=== PATIENT | female | born 1945 | race Two or more races ===

== ENCOUNTER 2024-03-06 12:00 | Inpatient (IN) | payer OTHER ==
[~2024-03-06] VITALS: Ht 149.9 cm; Wt 129.7 kg
[2024-03-06] MEDS ORDERED: LOSARTAN POTASS50 MG (12:41)
[2024-03-06] MEDS ORDERED: ADULT LOW DOSE81 M1 (12:41)
[2024-03-06] MEDS ORDERED: NEURONTIN300 MG (12:41)
[2024-03-06] MEDS ORDERED: CRESTOR40 MG (12:42)
--- NOTE | 2024-03-06 12:44 | NUR ---
SE RECIBE PTE ALERTA Y ORIENTADA X3 LA MISMA REFIERE DOLOR ABDOMINAL VOMITO X1 COLOR DON Y DIARREAS X3. PTE DEL DR.BAEZ MARQUEZ. SE MIDEN S/V Y SE UBICA
[2024-03-06] MEDS ORDERED: 0.9 % SODIUM CHLORIDE 1,000 ML IV SCH ×2 (13:00→17:15)
--- NOTE | 2024-03-06 13:28 | NUR ---
SE ORIENTA A PTE SOBRE TX MEDICO Y LA MISMA REFIERE ENTENDER. SE CANALIZA PTE CON ANGIO #20 EN ROSIOO MARGOT, SE RECOLECTAN MUESTRAS DE LAB Y SE ADMINISTRAN MEDICAMENTOS DEENA ORDEN MEDICA BAJO MEDIDAS ASEPTICAS.
[2024-03-06 13:43] LABS: HEMATOCRIT 23.7 % (36.0-45.00); MEAN CELL VOLUME 76.7 fL (80.00-100.00); MEAN CORPUSCULAR HGB CONC 31.8 g/dl (32.0-36.0); PLATELET COUNT 523 K/uL (150-450); RED BLOOD COUNT 3.09 M/uL (4.00-6.00); RED CELL DISTRIBUTION WIDTH 20.5 % (11.5-14.5)
[2024-03-06 13:46] LABS: HEMOGLOBIN 7.5 g/dL (12.0-15.00); MEAN CORPUSCULAR HEMOGLOBIN 24.2 pg (27.00-32.0)
[2024-03-06 13:56] LABS: INR 1.01; PARTIAL THROMBOPLASTIN TIME 23.4 SECONDS (22.0-34.0); PROTHROMBIN TIME 10.5 SECONDS (9.0-11.5)
[2024-03-06 14:12] LABS: CALCIUM 9.4 mg/dL (8.5-10.1); CREATININE SERUM 0.57 mg/dL (0.55-1.02); GFR 102.85; POTASSIUM 4.14 mEq/L (3.5-5.1)
[2024-03-06 14:41] LABS: PH,URINE 5.5 (5.0-8.0); URINE APPEARANCE Cloudy; URINE BILIRRUBIN Negative (NEGATIVE); URINE BLOOD Negative; URINE COLOR Dark Yellow; URINE GLUCOSE Negative (NEGATIVE); URINE LEUKOCYTE Negative; URINE NITRATE Negative; URINE PROTEIN 30 (NEGATIVE)
[2024-03-06 14:46] LABS: URINE BACTERIA 5986.2 uL (0.0-1933); URINE EPITHELIAL CELLS 119.9 uL (0.0-38.8); URINE RBC 18.3 uL (0.0-20.8); URINE WBC 46.9 uL (0.0-23.2)
[2024-03-06 15:50] LABS: URINE CAST 0.76 uL (0.0-1.40); URINE CRYSTALS MODERATE /HPF; URINE KETONE 80 (NEGATIVE)
--- NOTE | 2024-03-06 16:22 | NUR ---
SE RECIBE PACIENTE ALERTA Y ORIENTADA X3 EN COMPANIA DE FAMILIAR LA CUAL AL MOMENTO SE ENCUENTRA EN MARIE CON BARANDAS ELEVADAS. SE MANTIENE BAJO OBSERVACION PARA CONTINUACION DE TRATAMIENTO.
[2024-03-06] MEDS ORDERED: CEFTRIAXONE SODIUM 2,000 MG in 0.9 % SODIUM CHLORIDE 100 ML IV SCH (17:02)
[2024-03-06] MEDS ORDERED: FUROsemide 20 MG/2 ML VIAL IV SCH (17:15)
[2024-03-06] MEDS ORDERED: PANTOPRAZOLE SODIUM 40 MG/VIAL VIAL IV ONE (17:15)
[2024-03-06] MEDS ORDERED: ACETAMINOPHEN 500 MG GEL..CAP PO PRN (17:30)
[2024-03-06] MEDS ORDERED: ONDANSETRON HCL 4 MG in 0.9 % SODIUM CHLORIDE 50 ML IV PRN (17:30)
[2024-03-06] MEDS ORDERED: PANTOPRAZOLE SODIUM 80 MG in 0.9 % SODIUM CHLORIDE 100 ML IV SCH (17:30)
[2024-03-06] MEDS ORDERED: ENALAPRILAT DIHYDRATE 1.25 MG/ML VIAL IV SCH (18:00)
[2024-03-06 18:44] VITALS: BP 119/79
[2024-03-06 22:18] VITALS: BP 114/65; O2SAT 98
[2024-03-07 01:28] VITALS: BP 103/62; O2SAT 98
[2024-03-07 06:26] LABS: MEAN CELL VOLUME 77.8 fL (80.00-100.00); MEAN CORPUSCULAR HGB CONC 32.1 g/dl (32.0-36.0); PLATELET COUNT 459 K/uL (150-450); RED BLOOD COUNT 2.55 M/uL (4.00-6.00); RED CELL DISTRIBUTION WIDTH 20.5 % (11.5-14.5)
[2024-03-07 06:51] LABS: HEMATOCRIT 19.9 % (36.0-45.00); HEMOGLOBIN 6.4 g/dL (12.0-15.00)
[2024-03-07 08:49] VITALS: BP 130/76
[2024-03-07 15:05] VITALS: BP 115/67; O2SAT 99
[2024-03-07 16:47] LABS: PH,URINE 5.5 (5.0-8.0); URINE APPEARANCE Clear; URINE BILIRRUBIN Negative (NEGATIVE); URINE BLOOD Negative; URINE COLOR Yellow; URINE GLUCOSE Negative (NEGATIVE); URINE LEUKOCYTE Negative; URINE NITRATE Negative; URINE PROTEIN Trace (NEGATIVE); URINE UROBILINOGEN 0.2 E.U./dl
[2024-03-07 16:51] LABS: URINE BACTERIA 583.2 uL (0.0-1933); URINE EPITHELIAL CELLS 28.2 uL (0.0-38.8); URINE RBC 5.1 uL (0.0-20.8); URINE WBC 8.8 uL (0.0-23.2)
[2024-03-07 16:57] LABS: URINE CAST 0.76 uL (0.0-1.40); URINE KETONE 80 (NEGATIVE)
[2024-03-07] MEDS ORDERED: GABAPENTIN 300 MG CAPSULE PO SCH (17:00)
[2024-03-08] VITALS: BP 111/74; O2SAT 98
[2024-03-08 08:46] VITALS: BP 144/88
[2024-03-08 16:49] VITALS: BP 130/80; O2SAT 96
[2024-03-09 02:39] VITALS: BP 113/74; O2SAT 99
[2024-03-09 08:50] VITALS: BP 145/64
[2024-03-09] MEDS ORDERED: LOSARTAN POTASSIUM 50 MG TABLET PO NR (12:00)
[2024-03-09] MEDS ORDERED: SOD FERRIC GLUC COMPLX/SUCROSE 62.5 MG/5 ML AMPUL IV NR (12:00)
[2024-03-09] MEDS ORDERED: PANTOPRAZOLE SODIUM 40 MG/VIAL VIAL IV NR (12:00)
[2024-03-09 14:59] LABS: HEMATOCRIT 39.3 % (36.0-45.00); HEMOGLOBIN 13.1 g/dL (12.0-15.00); MEAN CELL VOLUME 79.8 fL (80.00-100.00); MEAN CORPUSCULAR HEMOGLOBIN 26.5 pg (27.00-32.0); MEAN CORPUSCULAR HGB CONC 33.3 g/dl (32.0-36.0); PLATELET COUNT 439 K/uL (150-450); RED BLOOD COUNT 4.92 M/uL (4.00-6.00); RED CELL DISTRIBUTION WIDTH 18.4 % (11.5-14.5)
[2024-03-09 15:40] LABS: ALBUMIN 3.5 gm/dL (3.4-5.0); BILIRUBIN TOTAL 1.14 mg/dL (0.3-1.2); CREATININE SERUM 0.56 mg/dL (0.55-1.02); FERRITIN 18.4 NG/ML (8-252); GFR 104.97; GLOBULINA 4.1 G/DL (2.4-3.5); MAGNESIUM 1.6 mg/dL (1.8-2.4); PHOSPHOROUS 3.7 mg/dL (2.5-4.9); POTASSIUM 3.95 mEq/L (3.5-5.1); TOTAL PROTEIN 7.6 gm/dL (6.4-8.2)
[2024-03-09 15:42] LABS: C-REACTIVE PROTEIN 1.4 MG/DL (0.00-0.29)
[2024-03-09 17:40] VITALS: BP 146/75; O2SAT 97
[2024-03-09] MEDS ORDERED: PANTOPRAZOLE SODIUM 40 MG/VIAL VIAL IV PUSH SCH (21:00)
[2024-03-09] MEDS ORDERED: GABAPENTIN 300 MG CAPSULE PO SCH (21:00)
[2024-03-10 01:24] VITALS: BP 99/65; O2SAT 98
[2024-03-10] MEDS ORDERED: LOSARTAN POTASSIUM 50 MG TABLET PO SCH (09:00)
[2024-03-10] MEDS ORDERED: FOLIC ACID 1 MG TABLET PO SCH (09:00)
[2024-03-10] MEDS ORDERED: SOD FERRIC GLUC COMPLX/SUCROSE 125 MG in 0.9 % SODIUM CHLORIDE 100 ML IV SCH (09:00)
[2024-03-10 09:20] VITALS: BP 115/66; O2SAT 100
[2024-03-10] MEDS ORDERED: MAGNESIUM SULFATE IN WATER 50 ML IV NR (14:15)
[2024-03-10 18:20] VITALS: BP 136/72
[2024-03-11 02:33] VITALS: BP 128/79; O2SAT 100
[2024-03-11 09:19] VITALS: BP 108/61; O2SAT 99
[2024-03-11 16:53] VITALS: BP 113/70
[2024-03-12 02:30] VITALS: BP 104/56; O2SAT 100
[2024-03-12 09:03] VITALS: BP 95/75; O2SAT 95
[2024-03-12 16:00] VITALS: BP 98/63; O2SAT 94
[2024-03-12 16:48] VITALS: BP 94/57
[2024-03-12 20:00] VITALS: BP 120/81
[2024-03-13 09:41] VITALS: BP 121/69; O2SAT 98
[2024-03-13 16:00] VITALS: BP 122/72; O2SAT 97
[2024-03-14 00:29] VITALS: BP 115/67; O2SAT 97
[2024-03-14 05:45] LABS: ALBUMIN 2.1 gm/dL (3.4-5.0); BILIRUBIN TOTAL 0.48 mg/dL (0.3-1.2); CALCIUM 8.3 mg/dL (8.5-10.1); CREATININE SERUM 0.35 mg/dL (0.55-1.02); GFR 180.56; GLOBULINA 3.4 G/DL (2.4-3.5); PHOSPHOROUS 2.1 mg/dL (2.5-4.9); POTASSIUM 3.1 mEq/L (3.5-5.1); TOTAL PROTEIN 5.5 gm/dL (6.4-8.2)
[2024-03-14 05:51] LABS: HEMATOCRIT 31.9 % (36.0-45.00); HEMOGLOBIN 10.6 g/dL (12.0-15.00); MAGNESIUM 1.4 mg/dL (1.8-2.4); MEAN CELL VOLUME 81.2 fL (80.00-100.00); MEAN CORPUSCULAR HGB CONC 33.2 g/dl (32.0-36.0); PLATELET COUNT 248 K/uL (150-450); RED BLOOD COUNT 3.93 M/uL (4.00-6.00); RED CELL DISTRIBUTION WIDTH 19.4 % (11.5-14.5)
[2024-03-14 08:53] VITALS: BP 115/68; O2SAT 96
[2024-03-14 16:27] VITALS: BP 149/63; O2SAT 100
[2024-03-14] MEDS ORDERED: MAGNESIUM SULFATE 2,000 MG in 0.9 % SODIUM CHLORIDE 100 ML IV NR (16:30)
[2024-03-14] MEDS ORDERED: POTASSIUM PHOS,M-BASIC-D-BASIC 18 MM in 0.9 % SODIUM CHLORIDE 500 ML IV NR (16:30)
[2024-03-14] MEDS ORDERED: METHYLPREDNISOLONE SOD SUCC 40 MG VIAL IV ONE (18:15)
[2024-03-14] MEDS ORDERED: VANCOMYCIN HCL 1,000 MG VIAL IV ONE (18:15)
[2024-03-15 04:00] VITALS: BP 111/69; O2SAT 95
[2024-03-15 04:52] LABS: HEMATOCRIT 31.9 % (36.0-45.00); MEAN CELL VOLUME 80.3 fL (80.00-100.00); MEAN CORPUSCULAR HGB CONC 32.9 g/dl (32.0-36.0); PLATELET COUNT 242 K/uL (150-450); RED BLOOD COUNT 3.98 M/uL (4.00-6.00); RED CELL DISTRIBUTION WIDTH 20.2 % (11.5-14.5)
[2024-03-15 05:09] LABS: HEMOGLOBIN 10.5 g/dL (12.0-15.00); INR 1.05; MEAN CORPUSCULAR HEMOGLOBIN 26.3 pg (27.00-32.0); PARTIAL THROMBOPLASTIN TIME 31.2 SECONDS (22.0-34.0); PROTHROMBIN TIME 11.4 SECONDS (9.0-11.5)
[2024-03-15 05:14] LABS: ALBUMIN 2.4 gm/dL (3.4-5.0); BILIRUBIN TOTAL 0.65 mg/dL (0.3-1.2); CALCIUM 8.7 mg/dL (8.5-10.1); GFR 233.59; MAGNESIUM 1.9 mg/dL (1.8-2.4); PHOSPHOROUS 2.7 mg/dL (2.5-4.9); POTASSIUM 3.58 mEq/L (3.5-5.1); TOTAL PROTEIN 5.4 gm/dL (6.4-8.2)
[2024-03-15 05:15] LABS: CREATININE SERUM 0.28 mg/dL (0.55-1.02)
[2024-03-15 08:54] VITALS: BP 113/66; O2SAT 96
[2024-03-15] MEDS ORDERED: ENOXAPARIN SODIUM 30 MG/0.3 ML SYRINGE SUBCUTANEO NR (16:20)
[2024-03-15] MEDS ORDERED: MORPHINE SULFATE 4 MG/ML CARTRIDGE IV SCH (17:00)
[2024-03-15] MEDS ORDERED: CEFAZOLIN SODIUM 1,000 MG VIAL IV SCH (18:00)
[2024-03-15 18:08] VITALS: BP 133/80; O2SAT 98
[2024-03-15] MEDS ORDERED: FAMOTIDINE/PF 20 MG/2 ML VIAL IV SCH (21:00)
[2024-03-16 01:23] VITALS: BP 78/48; O2SAT 96
[2024-03-16 05:27] VITALS: BP 103/64; O2SAT 93
[2024-03-16] MEDS ORDERED: ENOXAPARIN SODIUM 30 MG/0.3 ML SYRINGE SUBCUTANEO SCH (09:00)
[2024-03-16 09:17] VITALS: BP 96/56; O2SAT 97
[2024-03-16 10:08] VITALS: BP 105/60
[2024-03-16 17:48] VITALS: BP 110/69; O2SAT 99
[2024-03-17 01:30] VITALS: BP 96/61; O2SAT 91
[2024-03-17 06:51] LABS: HEMATOCRIT 29.9 % (36.0-45.00); HEMOGLOBIN 9.8 g/dL (12.0-15.00); MEAN CELL VOLUME 82.4 fL (80.00-100.00); MEAN CORPUSCULAR HEMOGLOBIN 27.1 pg (27.00-32.0); MEAN CORPUSCULAR HGB CONC 32.9 g/dl (32.0-36.0); PLATELET COUNT 206 K/uL (150-450); RED BLOOD COUNT 3.63 M/uL (4.00-6.00); RED CELL DISTRIBUTION WIDTH 21.6 % (11.5-14.5)
[2024-03-17 07:12] LABS: ALBUMIN 1.9 gm/dL (3.4-5.0); BILIRUBIN TOTAL 0.55 mg/dL (0.3-1.2); CALCIUM 8.2 mg/dL (8.5-10.1); CREATININE SERUM 0.36 mg/dL (0.55-1.02); GFR 174.78; POTASSIUM 3.68 mEq/L (3.5-5.1); TOTAL PROTEIN 4.9 gm/dL (6.4-8.2)
[2024-03-17 08:34] LABS: MAGNESIUM 1.4 mg/dL (1.8-2.4)
[2024-03-17 08:35] LABS: PHOSPHOROUS 1.9 mg/dL (2.5-4.9)
[2024-03-17] MEDS ORDERED: KETOROLAC TROMETHAMINE 30 MG VIAL IV SCH (09:00)
[2024-03-17 09:40] VITALS: BP 124/69; O2SAT 99
[2024-03-17] MEDS ORDERED: POTASSIUM PHOS,M-BASIC-D-BASIC 18 MM in 0.9 % SODIUM CHLORIDE 250 ML IV NR (13:45)
[2024-03-17] MEDS ORDERED: MAGNESIUM SULFATE IN WATER 50 ML IV NR (13:45)
[2024-03-17 18:29] VITALS: BP 110/61; O2SAT 95
[2024-03-18 05:26] VITALS: BP 112/63; O2SAT 96
[2024-03-18 08:36] VITALS: BP 134/82; O2SAT 99
[2024-03-18 16:32] VITALS: BP 135/83
[2024-03-19 02:31] VITALS: BP 94/55; O2SAT 99
[2024-03-19 08:08] VITALS: BP 110/68; O2SAT 96
[2024-03-19 08:47] LABS: ALBUMIN 1.8 gm/dL (3.4-5.0); ALKALINE PHOSPHATASE 46 U/L (50-136); ANION GAP 9 (10.0-20.0); AST/SGOT 16 U/L (15-37); BILIRUBIN TOTAL 0.43 mg/dL (0.3-1.2); BLOOD UREA NITROGEN 10 mg/dL (7-18); BUN CREA RATIO 31 (7.0-25.0); CALCIUM 8.5 mg/dL (8.5-10.1); CARBON DIOXIDE 28 mEq/L (21-32); CHLORIDE 113 mmol/L (98-107); CREATININE SERUM 0.32 mg/dL (0.55-1.02); GFR 200.23; GLOBULINA 2.8 G/DL (2.4-3.5); GLUCOSE FASTING 71 mg/dL (65-100); OSMOLALITY SERUM 290 MOSM/KG (275-295); PHOSPHOROUS 2.2 mg/dL (2.5-4.9); POTASSIUM 3.26 mEq/L (3.5-5.1); SODIUM 147 mmol/L (136-145); TOTAL PROTEIN 4.6 gm/dL (6.4-8.2)
[2024-03-19 08:57] LABS: ALT/SGPT < 6 U/L (12-78)
[2024-03-19] MEDS ORDERED: POTASSIUM PHOS,M-BASIC-D-BASIC 18 MM in 0.9 % SODIUM CHLORIDE 250 ML IV ONE (12:45)
[2024-03-19] MEDS ORDERED: DEXTROSE 5 % IN WATER 1,000 ML IV SCH (12:45)
[2024-03-19 17:14] VITALS: BP 116/72
[2024-03-20] VITALS: BP 104/68; O2SAT 94
[2024-03-20 10:10] VITALS: BP 106/64; O2SAT 98
[2024-03-20] MEDS ORDERED: ADULT LOW DOSE81 M1 BUCAL (14:23)
[2024-03-20] MEDS ORDERED: NEURONTIN300 MG BUCAL (14:23)
[2024-03-20] MEDS ORDERED: COZAAR50 MG PO (14:23)
[2024-03-20] MEDS ORDERED: CRESTOR40 MG BUCAL (14:23)
== END 2024-03-20 13:08 | disposition home or self-care (01) | DRG 327 ==
LOC: ER 12:01 → MEDI 17:48
PROVIDERS: Emergency Medicine; General Practice; Internal Medicine; Internal Medicine Infectious Disease; Surgery; ADMIT Internal Medicine; ATTEND Internal Medicine
PROC: BW21ZZZ Computerized Tomography (CT Scan) of Abdomen and Pelvis (ICD-10-PCS; 2024-03-06)
PROC: 30233N1 Transfusion of Nonautologous Red Blood Cells into Peripheral Vein, Percutaneous Approach (ICD-10-PCS; 2024-03-07)
PROC: B24BZZZ Ultrasonography of Heart with Aorta (ICD-10-PCS; 2024-03-09)
PROC: 02HV33Z Insertion of Infusion Device into Superior Vena Cava, Percutaneous Approach (ICD-10-PCS; 2024-03-12)
PROC: 0DB70ZZ Excision of Stomach, Pylorus, Open Approach (ICD-10-PCS; 2024-03-15)
PROC: 0D160ZA Bypass Stomach to Jejunum, Open Approach (ICD-10-PCS; principal; 2024-03-15 14:00)
DX: C16.9 Malignant neoplasm of stomach, unspecified (principal); E87.0 Hyperosmolality and hypernatremia; K92.2 Gastrointestinal hemorrhage, unspecified; E78.5 Hyperlipidemia, unspecified; D63.0 Anemia in neoplastic disease; R59.0 Localized enlarged lymph nodes; I10 Essential (primary) hypertension